=== PATIENT | female | born 1975 | race African-American/Black ===

== ENCOUNTER 2016-07-12 07:55 | Emergency (ER) | payer SELFPAY ==
[~2016-07-12] VITALS: Ht 162.6 cm; Wt 90.9 kg
[2016-07-12] MEDS ORDERED: CARI350 PO (08:09)
[2016-07-12] MEDS ORDERED: METH10 PO (08:09)
[2016-07-12 08:22] LABS: GLUCOSE,POINT OF CARE 92 MG/DL (70-110)
[2016-07-12 08:49] LABS: HEMATOCRIT 38.6 % (36-46); HEMOGLOBIN 12.4 g/dL (12.0-16.0); LYMPHOCYTES # (AUTO) 2.2 K/uL (1.0-4.8); MEAN CORPUSCULAR HEMOGLOBIN 27.7 pg (26.0-34.0); MEAN CORPUSCULAR HGB CONC 32.1 G/dL (31.0-37.0); MEAN CORPUSCULAR VOLUME 86 fL (80-100); MONOCYTES # (AUTO) 0.9 K/uL (0.1-1.0); MONOCYTES % (AUTO) 10.8 % (2.0-9.0); NEUTROPHILS % (AUTO) 59.2 % (40.0-70.0); RED BLOOD CELL COUNT(AUTO) 4.48 MIL/uL (4.00-5.20); RED CELL DISTRIBUTION WIDTH 13.7 % (11.5-14.5)
[2016-07-12 08:51] LABS: WHITE BLOOD COUNT (AUTO) 11.3 K/uL (4.5-11.0)
[2016-07-12 08:57] LABS: SALICYLATE 1.7 mg/dL (2.8-20.0)
[2016-07-12 08:58] LABS: ANION GAP 7 mmol/L (8-16); CALCIUM, TOTAL 9.2 mg/dL (8.8-10.5); CARBON DIOXIDE 28 mmol/L (22-29); CHLORIDE 103 mmol/L (98-107); CREATININE 0.65 mg/dL (0.60-1.30); GLOMERULAR FILTR. RATE CALC > 60 mL/min (>60); POTASSIUM 4.2 mmol/L (3.5-5.1); SODIUM SERUM 138 mmol/L (136-145); UREA NITROGEN, BLOOD 8 mg/dL (7-18)
[2016-07-12 09:04] LABS: ALANINE AMINOTRANSFERASE 66 U/L (12-78); ALBUMIN 3.3 g/dL (3.4-5.0); ASPARTATE AMINOTRANSFERASE 79 U/L (15-37); BILIRUBIN,TOTAL 0.1 mg/dL (0.1-1.0)
[2016-07-12 09:05] LABS: ACETAMINOPHEN < 2 mcg/mL (10-30)
[2016-07-12 09:12] LABS: PLATELET COUNT (AUTO) 112 K/uL (150-450); RBC MORPHOLOGY COMMENT NORMAL RBC MORPH
[2016-07-12 11:27] VITALS: BP 123/82
== END 2016-07-12 11:32 | disposition home or self-care (01) ==
LOC: EMS 07:57
DX: F32.9 Major depressive disorder, single episode, unspecified (principal); G93.40 Encephalopathy, unspecified; G43.909 Migraine, unspecified, not intractable, without status migrainosus; F11.10 Opioid abuse, uncomplicated; F15.90 Other stimulant use, unspecified, uncomplicated; Z88.5 Allergy status to narcotic agent
CPT/HCPCS: 36415; 80053; 80307; 82962; 85025; 99284; G0480 ×2; G0481

== ENCOUNTER 2017-03-07 19:26 | Emergency (ER) | payer SELFPAY ==
[~2017-03-07] VITALS: Ht 162.6 cm; Wt 90.9 kg
[~2017-03-07 19:26] MED LIST: CARI350 PO; METH10 PO
[2017-03-07 20:22] LABS: BASOPHILS % (AUTO) 0.3 % (0.0-2.0); EOSINOPHILS % (AUTO) 2.1 % (1.0-6.0); HEMATOCRIT 38.2 % (36-46); LYMPHOCYTES # (AUTO) 2.7 K/uL (1.0-4.8); LYMPHOCYTES % (AUTO) 21.9 % (22.0-44.0); MEAN CORPUSCULAR HEMOGLOBIN 29.4 pg (26.0-34.0); MEAN CORPUSCULAR VOLUME 87 fL (80-100); MONOCYTES % (AUTO) 8.2 % (2.0-9.0); NEUTROPHILS # (AUTO) 8.2 K/uL (1.8-7.7); NEUTROPHILS % (AUTO) 67.5 % (40.0-70.0); PLATELET COUNT (AUTO) 286 K/uL (150-450); WHITE BLOOD COUNT (AUTO) 12.2 K/uL (4.5-11.0)
[2017-03-07 21:05] LABS: ANION GAP 9 mmol/L (8-16); CALCIUM, TOTAL 9.2 mg/dL (8.8-10.5); CARBON DIOXIDE 29 mmol/L (22-29); CHLORIDE 101 mmol/L (98-107); CREATININE 0.86 mg/dL (0.60-1.30); GLOMERULAR FILTR. RATE CALC > 60 mL/min (>60); POTASSIUM 3.7 mmol/L (3.5-5.1); SODIUM SERUM 139 mmol/L (136-145); UREA NITROGEN, BLOOD 6 mg/dL (7-18)
[2017-03-07 21:11] LABS: ALANINE AMINOTRANSFERASE 17 U/L (12-78); ALBUMIN 3.6 g/dL (3.4-5.0); ASPARTATE AMINOTRANSFERASE 12 U/L (15-37); BILIRUBIN,TOTAL 0.2 mg/dL (0.1-1.0); TOTAL PROTEIN, SERUM 7.7 g/dL (6.4-8.2)
[2017-03-07 23:03] VITALS: BP 98/62
== END 2017-03-07 23:36 | disposition home or self-care (01) ==
LOC: EMS 19:27
DX: R56.9 Unspecified convulsions (principal); R00.0 Tachycardia, unspecified; F11.10 Opioid abuse, uncomplicated; F19.10 Other psychoactive substance abuse, uncomplicated; G43.909 Migraine, unspecified, not intractable, without status migrainosus; F32.9 Major depressive disorder, single episode, unspecified; Z86.711 Personal history of pulmonary embolism; Z87.440 Personal history of urinary (tract) infections
CPT/HCPCS: 36415; 70450; 80053; 80185; 84703; 85025; 93005; 99285; G0480